=== PATIENT | female | born 1930 | race African-American/Black ===

== ENCOUNTER 2017-09-02 09:57 | Emergency (ER) | payer OTHER, MEDICAID ==
[~2017-09-02] VITALS: Ht 160 cm; Wt 50.0 kg
[~2017-09-02 09:57] MED LIST: BUSP5TAB3 PO; ENAL5TAB PO
[2017-09-02 10:30] VITALS: BP 112/59
[2017-09-02] MEDS ORDERED: ACETAMINOPHEN 325MG TABLET PO ONE (11:45)
[2017-09-02] MEDS ORDERED: ACETAMINOPHEN 650MG/20.3ML UDC PO SCH (12:40)
[2017-09-02] MEDS ORDERED: ACETAMINOPHEN 160MG/5ML UDC PO ONE (12:45)
== END 2017-09-02 13:08 | disposition home or self-care (01) ==
LOC: ER 10:31
DX: M79.662 Pain in left lower leg (principal); M85.80 Other specified disorders of bone density and structure, unspecified site; M11.262 Other chondrocalcinosis, left knee; M19.90 Unspecified osteoarthritis, unspecified site
CPT/HCPCS: 73590; 99284